=== PATIENT | male | born 1965 | race Caucasian/White ===

== ENCOUNTER 2023-05-14 06:59 | Outpatient (REF) | payer OTHER, SELFPAY ==
[2023-05-14 11:12] LABS: MANUAL DIFF FLAG NO
[2023-05-14 11:34] LABS: Basophils Absolute Auto 0.1 X10*3/uL (0.0-0.2); Basophils Percent Auto 1.2 % (0-2); Eosinophils Absolute Auto 0.4 X10*3/uL (0.0-0.4); Eosinophils Percent Auto 5.3 % (0-4); Hematocrit 46.7 % (42.0-52.0); Hemoglobin 16.9 g/dl (14.0-18.0); Imm Gran Abs Auto 0.05 X10*3/uL (0.00-0.03); Imm Gran Pct Auto 0.7 % (0.0-0.4); Lymphocytes Absolute Auto 3.4 X10*3/uL (1.2-4.9); Lymphocytes Percent Auto 44.1 % (20-40); Mean Corpuscular HGB Conc 36.2 g/dl (31.0-36.0); Mean Corpuscular Hemoglobin 31.9 pg (27.0-33.0); Mean Corpuscular Volume 88.1 fL (80.0-98.0); Mean Platelet Volume 9.4 fL (9.4-12.4); Monocytes Absolute Auto 0.6 X10*3/uL (0.1-1.2); Monocytes Percent Auto 7.8 % (2-11); Neutrophils Absolute Auto 3.2 x10*3/uL (2.0-8.3); Neutrophils Percent Auto 40.9 % (45-73); Platelet Count 275 X10*3/uL (160-400); White Blood Count 7.7 X10*3/uL (4.8-10.8)
[2023-05-14 12:07] LABS: Alanine Aminotransferase 81 U/L (0-40); Albumin Level 4.3 g/dL (3.5-5.0); Alkaline Phosphatase 112 U/L (39-117); Anion Gap 18 (12-20); Aspartate Amino Transferase 45 U/L (5-37); Bilirubin Total 0.8 mg/dL (0.0-1.0); Blood Urea Nitrogen 13 mg/dL (9-16); Calcium 9.9 mg/dL (8.4-10.2); Carbon Dioxide 21 mmol/L (22-29); Chloride 102 mmol/L (96-108); Cholesterol 276 mg/dL (<200); Estimated Glomerular Filt Rate > 60; Glucose Random 170 mg/dL (60-115); HDL Cholesterol 45 mg/dL (>40); Potassium 3.8 mmol/L (3.3-5.1); Sodium 137 mmol/L (135-145); TSH reflex Free T4 1.57 uIU/mL (0.32-4.0); Triglycerides 487 mg/dL (<150)
== END 2023-05-14 07:00 | disposition home or self-care (01) ==
LOC: HO.HMGCLDS 06:59
PROVIDERS: Visit Provider Nurse Practitioner
DX: Z00.00 Encounter for general adult medical examination without abnormal findings (principal)
CPT/HCPCS: 36415; 80053; 80061; 84443; 85025

== ENCOUNTER 2023-05-15 11:30 | Outpatient (REF) | payer OTHER, SELFPAY ==
--- NOTE | ~2023-05-15 | XR_ITS ---
EXAMINATION: XR CHEST 2 VIEWS CLINICAL INFORMATION: Dyspnea. COMPARISON: None. TECHNIQUE: Frontal and lateral views of the chest were obtained. FINDINGS: The heart, great vessels, pulmonary vasculature and mediastinum are normal. The lungs show no focal infiltrate, effusion or pneumothorax. There is moderate elevation of the right hemidiaphragm. There is no acute osseous abnormality. XR/XR chest 2V IMPRESSION: No active cardiopulmonary disease.
== END 2023-05-15 11:31 | disposition home or self-care (01) ==
LOC: HO.HMGCX 11:30
PROVIDERS: Visit Provider Nurse Practitioner
DX: R06.00 Dyspnea, unspecified (principal)
CPT/HCPCS: 71046

== ENCOUNTER 2023-06-03 16:20 | Emergency (ER) | payer OTHER, SELFPAY | END 2023-06-03 19:19 | disposition left against medical advice (07) | LOC: HO.ED 18:49 | PROVIDERS: Emergency Provider Emergency Medicine | DX: R03.0 Elevated blood-pressure reading, without diagnosis of hypertension (principal) ==

== ENCOUNTER 2023-06-15 11:02 | Outpatient (REF) | payer OTHER, SELFPAY ==
[2023-06-15 14:12] LABS: Estimated Average Glucose 163 mg/dL; Hemoglobin A1c % 7.3 % (<6.0)
== END 2023-06-15 11:03 | disposition home or self-care (01) ==
LOC: HO.HMGCLDS 11:02
PROVIDERS: PCP Nurse Practitioner; Visit Provider Nurse Practitioner
DX: R73.09 Other abnormal glucose (principal)
CPT/HCPCS: 36415; 83036

== ENCOUNTER → 2023-07-03 08:38 | Outpatient (REF) | payer OTHER, SELFPAY ==
--- NOTE | 2023-07-03 08:56 | CA_ITS ---
Transthoracic Echocardiogram Patient (Last, First, Middle): Jose De Jesus Torres R Gender: Male Date of : 1965 Age: 57 Procedure Date: 07/03/2023 Procedure Type: Transthoracic Echocardiogram Location: OP Height: 177.8 cm Weight: 92.53 kg BSA: 2.10 m2 Heart Rate: 78 bpm BP: 142 / 92 mmHg Pin Puller: MOR Referring MD: Shereen Benavides NP Drafting Teacher: Rohan Eckert MD Symptoms: HTN I10 Study Quality: Adequate ECG Rhythm: Sinus Conclusions: - 1. Normal LV ejection fraction of 60 65% with grade 1 diastolic dysfunction with mild asymmetric septal hypertrophy 2. Cardiac valvular Doppler is within normal limits 3. Normal RV systolic pressure 4. Upper limits of normal ascending aortic size 5. No gross pericardial effusion Findings Left Ventricle Normal left ventricular size, thickness, and systolic function. The visually estimated ejection fraction is between 60-65%. Spectral Doppler is indicative of an impaired relaxation filling pattern. E/E prime ratio is <8, consistent with normal filling pressures. Evidence suggests grade I (mild) diastolic dysfunction. There is mild septal asymmetric hypertrophy. Right Ventricle Normal right ventricular cavity size. There is low normal right ventricular systolic function. Atria Both atria are normal in size. There is no evidence of interatrial shunt. Aortic Valve The aortic valve structure and function is likely normal. There is no aortic valve stenosis. There is no aortic valve regurgitation. Mitral Valve Likely normal mitral valve structure and function. There is trace mitral valve regurgitation. There is no mitral valve stenosis. Pulmonic Valve The pulmonic valve is likely normal. There is trace to mild pulmonic valve regurgitation. Tricuspid Valve Likely normal tricuspid valve structure and function. There is trace tricuspid valve regurgitation. The right ventricular systolic pressure is normal. The right ventricular systolic pressure is 24 mmHg. Normal right atrial pressure. There is no evidence of pulmonary hypertension. Great Vessels The pulmonary artery was not well visualized. Venous The inferior vena cava is normal in size. Pericardium/Pleural There is no evidence of pericardial effusion. Prior Study Comparison No prior study available for comparison. Measurements 2D Linear Measurements IVSd: 1.38 0.6-0.9/0.6-1.0 cm LVIDd: 4.55 3.9-5.3/4.2-5.9 cm LVIDd Index: 2.17 2.4-3.2/2.2-3.1 cm/m2 LVIDs: 3.12 2.0-3.6 cm LVPWd: 0.82 0.7-1.1 cm LA Diam: 3.00 2.7-3.8/3.0-4.0 cm LAIDs Index: 1.43 1.5-2.3 cm/m2 LV Mass: 222.03 67-162/88-224 g LV Mass Index: 105.73 43-95/49-115 g/m2 LVOT Diam: 2.00 3.0+(-)1.3 cm 2D Systolic Function EF 4C: 65.60 >55% EF 2C: 62.40 >55% EF BiP: 64.50 >55% Mitral Valve MV Pk E: 0.78 MV PK A: 0.64 MV Decel Time: 170.00 E/A: 1.20 E'Lateral: 11.30 E'Medial: 5.77 E/E' Med: 13.50 E/E' Lat: 6.90 PHT: 50.00 MVA PHT: 4.40 Decel Wallace: 4.59 Aortic Valve AoV Pk Be: 1.32 AoV Pk Grad: 7.00 YASMIN: 2.93 LVOT LVOT Pk Be: 1.23 LVOT Mn Be: 0.89 LVOT VTI: 0.25 LVOT Pk Grad: 6.00 LVOT Mn Grad: 4.00 LVOT Diam: 2.00 LVOT Area: 3.14 Diastolic Function MV Pk E: 0.78 MV Pk A: 0.64 E/A: 1.20 E'Medial: 5.77 E/E' Med: 13.50 E' Laterial: 11.30 E/E' Lat: 6.90 Right Ventricle TAPSE (mm): 16.60 TVS' Be: 10.40 Tricuspid Valve TR Pk Be: 2.28 TR Pk Grad: 21.00 RA Press: 3.00 RVSP: 24.00 Great Vessels Aorta Sinus of Valsalva: 3.60 2.0-3.5 cm Ao Asc: 3.60 2.1-3.4 cm Pulmonary Valve PV Pk Be: 0.88 Peak PV Grad: 3.00 Updated in Other Vendor System with Status of Final Rohan Eckert MD electronically signed on 07/03/2023 2:22:52 PM with status of Final
== END ==
LOC: HO.CARD 08:38
PROVIDERS: Visit Provider Nurse Practitioner
DX: I10 Essential (primary) hypertension (principal)
CPT/HCPCS: 93306

== ENCOUNTER → 2023-07-03 08:56 | Outpatient (BNV) | payer OTHER, SELFPAY | PROVIDERS: Visit Provider Internal Medicine Cardiovascular Disease | DX: I42.2 Other hypertrophic cardiomyopathy (principal) | CPT/HCPCS: 93306 ==

== ENCOUNTER 2023-09-18 10:02 | Outpatient (REF) | payer OTHER, SELFPAY ==
[2023-09-18 11:51] LABS: Vitamin B12 453 pg/mL (200-900)
[2023-09-23 15:08] LABS: Testosterone, Total 505 ng/dL (250-1100)
== END 2023-09-18 10:03 | disposition home or self-care (01) ==
LOC: HO.LAB 10:02
PROVIDERS: PCP Nurse Practitioner; Visit Provider Nurse Practitioner
DX: R53.83 Other fatigue (principal)
CPT/HCPCS: 36415; 82607; 84403

== ENCOUNTER 2024-01-20 07:13 | Outpatient (REF) | payer OTHER, SELFPAY ==
[2024-01-20 08:06] LABS: Estimated Average Glucose 97 mg/dL; Hemoglobin A1C 112.8041 umol/L; Total Hemoglobin (HGBA1C) 3570.7812 umol/L
== END 2024-01-20 07:14 | disposition home or self-care (01) ==
LOC: HO.LAB 07:13
PROVIDERS: PCP Nurse Practitioner; Visit Provider Nurse Practitioner
DX: E11.9 Type 2 diabetes mellitus without complications (principal)
CPT/HCPCS: 36415; 83036

== ENCOUNTER 2024-05-26 06:43 | Outpatient (REF) | payer OTHER, SELFPAY ==
--- OUTSIDE RECORDS SUMMARY | 2024-05-26 06:50 | XMS_ITS | Encounter Summary ---
Author Organization [facility] Address [address] [place] [address] Care Team Providers Care Hotel Clerk Name Role Phone Clarissa Leggett MD Primary Care Provider + Encounter Details Date Type Department Care Team (Late st Contact Info) Description 05/19/2024 Telephone [facility] 2 [facility] [address] [place] [address] Clarissa Leggett MD [address] [phone] Social History Tobacco Use Types Packs/Day Years Used Date Smoking Tobacco: Some Days Cigarettes 0.3 42.1 Started: 04/08/1982 Smokeless Tobacco: Never Comments:1 pack per week Alcohol Use Standard Drinks/Week Comments Yes 0 (1 standard drink = 0.6 oz pur e alcohol) Minimal drinking [facility] Utilities Answer Date Recorded In the past 12 months has [email or web address], gas, oil, or water [employer] threatened to shut off services in your home? No 05/18/2024 PHQ-2 Answer Date Recorded PHQ-9 Total Score 1 05/18/2024 Hunger Vital Sign Answer Date Recorded Within the past 12 months, y ou worried that your food would run out before you got the money to buy more. Never true 05/18/19 25 Within the past 12 months, t he food you bought just didn't last and you didn't have money to get more. Never true 05/18/2024 PRAPARE - Transportation Answer Date Re corded In the past 12 months, has l ack of transportation kept you from medical appointments or from getting medications? No 05/09 In the past 12 months, has l ack of transportation kept you from meetings, work, or from getting things needed for daily living? No 05/18/2024 Housing Stability Vital Sign Answer Vlad e Recorded In the last 12 months, was t here a time when you were not able to pay the mortgage or rent on time? No 05/18/2024 In the past 12 months, how m any times have you moved where you were living? 1 05/18/2024 At any time in the past 12 m [facility], were you homeless or living in a alf (including now)? No 05/18/2024 Food Insecurity Answer Date Recorded Within the past 12 months, y ou worried that your food would run out before you got the money to buy more. 1 05/18/2024 Within the past 12 months, t he food you bought just didn't last and you didn't have money to get more. 1 05/18/2024 Sex and Gender Information Value Date Recorded Sex Assigned at Not on file Gender Identity Not on file Sexual Orientation Not on file documented as of this encounter Plan of Treatment Upcoming Encounters Date Type Department Care Team (Latest Contact Info) Description 06/26/2024 12:00 PM EDT Hospital Encounter [facility] ENDOSCOPY DEPARTMENT [address] [place] [phone] Gabino Ramirez MD [address] [place] [address] 06/26/2024 12:00 PM EDT - 06/26/2024 12:50 PM EDT Surgery [facility] END[facility]COPY DEPARTMENT [address] [place] [phone] Gabino Ramirez MD [address] [place] [address] COLORECTAL CANCER SCREENING, NOT HIGH RISK 05/25/2025 8:00 AM [facility] 2 [facility] [address] [place] [address] Clarissa Leggett MD 2 [facility] [address] [place] [address] Return in about 1 year (around 05/19/2025). Scheduled Procedures Name Priority Associated Diagnoses Date/Ti me COLORECTAL CANCER SCREENING, NOT HIGH RISK Screen for colon cancer 06/26/2024 12:00 PM EDT documented as of this encounter Visit Diagnoses Not on filedocumented in this encounter Care Teams Hotel Clerk Relationship Specialty Start Date End Date Clarissa Leggett MD 2 [facility] [address] [place] [address] PCP - General Family Medicine 05/19/24 documented as of this encounter
--- OUTSIDE RECORDS SUMMARY | 2024-05-26 06:50 | XMS_ITS | Continuity of Care Document ---
Author Organization [facility] Address [address] [place] [address] Phone Care Team Providers Care Post Adoption Coordinator Name Role Phone Carlos Mahan MD Unavailable Unavailable Allergies, Adverse Reactions, Alerts Substance Reaction Status Criticality No Known Allergies Active No Inform ation Medications Medication Instructions Dosage Effective Dates (start - stop) Status Comments Celebrex 200 mg capsule take 1 capsule by oral route every day 200 MG - Active VITAMIN C (unknown strength) take 2 capsule by oral route every day Not Available - Active VITAMIN D3 (unknown strength) Not Available - Active ZINC (unknown strength) Not Available - Active CO Q-10 (unknown strength) Not Available - Active МАРИНА-MAG (unknown strength) Not Available - Active MULTIVITAMIN (unknown strength) Not Available - Active PROBIOTIC (unknown strength) Not Available - Active TURMERIC (unknown strength) Not Available - Active APPLE CIDER VINEGAR (unknown strength) Not Available - Active Procedures Procedure Date ECHO GUIDE FOR BIOPSY Dexamethasone Na Phospate Triamcinolone Acetonide/1cc=40mg 2021 Lidocaine injection Ropivacaine HCl injection Inj; 1/mx Trig Point 1/two Mus Offic/outpt E&m Estab Low-mod 2 Hip, Including Pelvis When Performed 2-3 Views Offic/outpt E&m New Mod Sever 2 Advance Directives Directive Yes / No Effective Date File Name No Information Encounters Encounter Description Practice Location Reason(s) For Visit Diagnoses Date Provider Providers Copied on Encounter Offic/outpt E&m Estab Low-mod [facility], [address], [place], [id number], [place] tel:[phone] [facility] left hip pain (chief complaint) Piriformis syndrome, left 2 Negrito Gonzalez. [address] [place] [address], [address], [place]. tel:[phone] Offic/outpt E&m New Mod Sever [facility], [address], [place], [id number], [place] tel:[phone] [facility] left hip pain (chief complaint) Body mass index (BMI) 28.0-28.9, adultPain in left hipPiriformis syndrome, left 2 Laurenamfee angelia Mack. [address] [place] [address], [address], [place]. tel:[phone] Family History Family Member Type Diagnosis Age At Onset No Information Payers Payer name Insurance type Covered green party ID Dinesh normannorman(s) Heike [id number] Social History Type Description Quantity Date Captured Comments Alcohol Use Details Unknown Caffeine Use Details Unknown Tobacco Use Status No Information Smoking Status No Information Sex Male Chief Complaint And Reason For Visit From encounter dated '06/14/2021 09:45'. left hip pain (chief complaint). Description: Location of pain is left. Additional information: U/Sguided Piriformis injection. Reason For Referral Reason For Referral No Information Plan Of Treatment Date Type Action Status Goal Lifestyle educat ion regarding diet completed Referral Ordered: Hip Injection Under Fluro LT hip ordered Referral Ordered: Hip, Including Pelvis When Performed 2-3 Views LT w/pelvis ordered Future Order: Radiology Order Hi p, Including Pelvis When Performed 2-3 Views LT w/pelvis ([id number]), Body Site: w/pelvis, Collected on: , Sent on: Sent History Of Present Illness Encounter Date Complaint History Of Prese nt Illness left hip pain Location of pain is left. Additional information: U/S guided Piriformis injection. left hip pain Severity level i s 6-10. Location of pain is left. The patient describes the pain as an ache. Trauma occurred on 05/23/2021. Symptom is aggravated by standing and night pain. Relieving factors include [id number] medications: ibuprofen. Additional information: States he fell on ice about 5 weeks ago and was more concerned about a wrist injury and thought he just bruised left hip. Locates pain over left buttocks. Occasionally feels like something's catching in his left hip. Functional Status Date Functional Assessmen t No Information Instructions Date Instruction Additional Infor juan f Lifestyle education regarding di et Related to Body mass index [BMI] 28.0-28.9, adult Assessments Type Assessment Date assessment Piriformis syndrome, left Patient Care Teams Name Effective Dates (start - stop) Status Members No Information
--- OUTSIDE RECORDS SUMMARY | 2024-05-26 06:50 | XMS_ITS | Encounter Summary ---
Author Organization [facility] Address [address] [place] [address] Care Team Providers Care Ccna Name Role Phone Clarissa Leggett MD Primary Care Provider + Reason for Visit * Reason Onset Date Comments Records release 05/19/2024 Encounter Details Date Type Department Care Team (Late st Contact Info) Description 05/19/2024 Telephone [facility] [address] [phone] Clarissa Leggett MD [address] [address] Records release Social History Tobacco Use Types Packs/Day Years Used Date Smoking Tobacco: Some Days Cigarettes 0.3 42.1 Started: 04/08/1982 Smokeless Tobacco: Never Comments:1 pack per week Alcohol Use Standard Drinks/Week Comments Yes 0 (1 standard drink = 0.6 oz pur e alcohol) Minimal drinking [facility] Utilities Answer Date Recorded In the past 12 months has [employer], gas, oil, or water [employer] threatened to shut off services in your [...] any time in the past 12 m onths, were you homeless or living in a fci (including now)? No 05/18/2024 Food Insecurity Answer [...] Description 06/26/2024 12:00 PM EDT Hospital Encounter [facility] ENDOSCOPY DEPARTMENT [address] [place] [phone] Gabino Ramirez MD [address] [place] [address] 06/26/2024 12:00 PM EDT - 06/26/2024 12:50 PM EDT Surgery [facility] ENDOSCOPY DEPARTMENT [address] [place] [phone] Gabino Ramirez MD [address] [place] [phone] COLORECTAL CANCER SCREENING, NOT HIGH RISK 05/25/2025 8:00 AM [facility] 2 [facility] 21 [place] [address] Clarissa Leggett MD 2 [facility] [address] [place] [address] Return in about 1 year (around 05/19/2025). Scheduled Procedures Name Priority Associated Diagnoses Date/Ti me COLORECTAL CANCER SCREENING, NOT HIGH RISK Screen for colon cancer 06/26/2024 12:00 PM EDT documented as of this encounter Visit Diagnoses Not on filedocumented in this encounter Care Teams Ccna Relationship Specialty Start Date End Date Clarissa Leggett MD [address] [address] PCP - General Family Medicine 05/19/24 documented as of this encounter
--- OUTSIDE RECORDS SUMMARY | 2024-05-26 06:50 | XMS_ITS | Clinical Summary ---
Author Organization [facility] Address [address] [place] [address] Care Team Providers Care Archivist Political History Name Role Phone Clarissa Leggett MD Primary Care Provider + Allergies Active Allergy Reactions Criticality Noted Date Comments Codeine Hives,Itching,Shortness Of Breath High Medications Medication Sig Dispensed Refills Start Date End Date Status amLODIPine (NORVASC) 5 MG tablet 04/02/2024 Active Continuous Glucose Sensor (DEXCOM G7 SENSOR) MISC 05/10/2024 Active ondansetron (ZOFRAN-ODT) 4 MG disintegrating tablet 05/04/2024 Active MOUNJARO 5 MG/0.5ML SOAJ 04/14/2024 Active MOUNJARO 7.5 MG/0.5ML SOAJ 04/29/2024 Active fenofibrate (TRICOR) 145 MG tablet Take 1 tablet by mouth daily Active Active Problems Problem Noted Date Diagnosed Date Type 2 diabetes mellitus wit hout complication, without long-term current use of insulin 05/19/2024 Assessment & Plan (05/19/2024 8:33 AM EST): Patient reports prior history of type 2 diabetes mellitus. He has been taking Mounjaro 7.5 mg weekly. - will request prior records from his physician's office in order to confirm he has a prior Hg A1C > 6.5 % - will refill Mounjaro 7.5 mg weekly pending prior records from office Primary hypertension 05/19/2024 Assessment & Plan (05/19/2024 8:34 AM EST): Currently well controlled in 120-130s/60s-70s - continue amlodipine 5 mg daily Mixed hyperlipidemia 05/19/2024 Assessment & Plan (05/19/2024 8:33 AM EST): - repeat lipid panel - continue fenofibrate 145 mg daily Screening for colon cancer 05/19/2024 Assessment & Plan (05/19/2024 8:34 AM EST): Screening colonoscopy ordered today Healthcare maintenance 05/19/2024 Assessment & Plan (05/19/2024 8:57 AM EST): Labs: CBC, CMP, Hg A1C, lipid panel, HIV, hepatitis C ordered today Colon cancer screening: screening colonoscopy ordered today Prostate cancer screening: PSA ordered today Immunizations: patient declines any additional immunizations on exam today Screening for prostate cancer 05/19/2024 Assessment & Plan (05/19/2024 8:34 AM EST): Screening PSA ordered today Encounters Date Type Department Care Team Description 05/21/2024 Telephone [facility] 2 [facility] [address] [place] [address] Clarissa Leggett MD 05/20/2024 Telephone [facility] [address] [facility] [address] [address] [place] [phone] Chang Beltrán DPM New Patient 05/19/2024 8:00 AM EST Telemedicine [facility] 2 [facility] [address] [place] [address] Clarissa Leggett MD Type 2 diabetes mellitus without complication, without long-term current use of insulin (HCC) (Primary Dx); Primary hypertension; Mixed hyperlipidemia; Screening for colon cancer; Healthcare maintenance; Screening for prostate cancer 05/19/2024 Orders Only [facility] 2 [facility] [address] [place] [address] Clarissa Leggett MD Type 2 diabetes mellitus without complication, without long-term current use of insulin (HCC) (Primary Dx) 05/19/2024 Telephone [facility] 2 [facility] [address] [place] [phone] Clarissa Leggett MD Records release 05/19/2024 Telephone [facility] [address] [place] [phone] Clarissa Leggett MD 05/04/2024 Telephone [facility] [address] [facility] [address] [place] [address] Clarissa Leggett MD New Patient from Last 3 Months Family History Medical History Relation Name Comments Alcohol Abuse Maternal Grandfather Bossman Allergy (Severe) Mother Melita Torres Asthma Mother Melita Torres Mental Illness Mother Melita Torres Allergy (Severe) Sister Maya 1/2 sister Asthma Sister Maya Relation Name Status Comments Maternal Grandfather Bossman Mother Melita Torres Sister Maya Social History Tobacco Use Types Packs/Day Years Used Date Smoking Tobacco: Some Days Cigarettes 0.3 42.1 Started: 04/08/1982 Smokeless Tobacco: Never Tobacco Cessation:Ready to Q uit: No; Counseling Given: Yes Comments:1 pack per week Alcohol Use Standard Drinks/Week Comments Yes 0 (1 standard drink = 0.6 oz pur e alcohol) Minimal drinking [facility] Utilities Answer Date Recorded In the past 12 months has th e [employer], gas, oil, or water [employer] threatened to shut off services in your [...] any time in the past 12 m [facility], were you homeless or living in a long-term (including now)? No 05/18/2024 Food Insecurity Answer [...] on file Sexual Orientation Not on file Plan of Treatment Upcoming Encounters Date Type Department Care Team (Latest Contact Info) Description 06/26/2024 12:00 PM EDT Hospital Encounter [facility] ENDOSCOPY [facility]PARTMENT [address] [place] [phone] Gabino Ramirez MD [address] [place] [address] 06/26/2024 12:00 PM EDT - 06/26/2024 12:50 PM EDT Surgery [facility] END[facility] DEPART[facility] [address] [place] [phone] Gabino Ramirez MD [address] [place] [phone] COLORECTAL CANCER SCREENING, NOT HIGH RISK 05/25/2025 8:00 AM EST [facility] [address] [phone] Clarissa Leggett MD [address] [address] Return in about 1 year (around 05/19/2025). Scheduled Procedures Name Priority Associated Diagnoses Date/Ti me COLORECTAL CANCER SCREENING, NOT HIGH RISK Screen for colon cancer 06/26/2024 12:00 PM EDT Health Maintenance Due Date Last Done Comments A1C test (Diabetic or Prediabetic) 1976 Diabetic foot exam 1976 Lipids 1976 HIV screen 1981 Diabetic Alb to Cr ratio (uACR) test 1984 Diabetic retinal exam 1984 GFR test (Diabetes, CKD 3-4, OR last GFR 15-59) 1984 Hepatitis C screen 1984 DTaP/Tdap/Td vaccine (1 - Tdap) 1985 Hepatitis B vaccine (1 of 3 - 19+ 3-dose series) 1985 Pneumococcal 50+ years Vacci ne (1 of 2 - PCV) 1985 Colonoscopy 11/04/2011 Colorectal Cancer Screen 11/04/2011 FIT/FOBT: Average risk 11/04/2011 Fecal-DNA (Cologuard): Pearblossom ge risk 11/04/2011 Sigmoidoscopy/CT colonography 11/04/2011 Shingles vaccine (1 of 2) 2016 Flu vaccine (#1) 11/07/2023 COVID-19 Vaccine (1 - 2023-2 5 season) 2023 Depression Screen 05/18/2025 05/18/2024, 05/18/2024 Hepatitis A vaccine Aged Out No longe r eligible based on patient's age to complete this topic Hib vaccine Aged Out No longer eligi ble based on patient's age to complete this topic Meningococcal (ACWY) vaccine Aged Out No longer eligible based on patient's age to complete this topic Polio vaccine Aged Out No longer elig ible based on patient's age to complete this topic Care Teams Archivist Political History Relationship Specialty Start Date End Date Clarissa Leggett MD 2 [facility] [address] [place], [place] [phone] PCP - General Family Medicine 05/19/24
--- OUTSIDE RECORDS SUMMARY | 2024-05-26 06:50 | XMS_ITS | Encounter Summary ---
Author Organization [facility] Address [address] [place] [address] Care Team Providers Care Restaurant Area Director Name Role Phone Clarissa Leggett MD Primary Care Provider + Reason for Visit * Reason Onset Date Comments New Patient 05/20/2024 Encounter Details Date Type Department Care Team (Late st Contact Info) Description 05/20/2024 Telephone [facility] [address] [place] [phone] Chang Beltrán DPM [address] [place] [address] New Patient Social History Tobacco Use Types Packs/Day Years Used Date Smoking Tobacco: Some Days Cigarettes 0.3 42.1 Started: 04/08/1982 Smokeless Tobacco: Never Comments:1 pack per week Alcohol Use Standard Drinks/Week Comments Yes 0 (1 standard drink = 0.6 oz pur e alcohol) Minimal drinking [facility] Utilities Answer Date Recorded In the past 12 months has e [employer], gas, oil, or water [employer] threatened to shut off services in your [...] were you homeless or living in a care home (including now)? No 05/18/2024 Food Insecurity Answer [...] 06/26/2024 12:00 PM EDT Hospital Encounter [facility] ENDOSCOPY DEPARTMENT [address] [place] [phone] Gabino Ramirez MD [address] [place] [address] 06/26/2024 12:00 PM EDT - 06/26/2024 12:50 PM EDT Surgery [facility] ENDOSCOPY DEPARTMENT [address] [place] [phone] Gabino Ramirez MD [address] [place] [address] COLORECTAL CANCER SCREENING, NOT HIGH RISK 05/25/2025 8:00 AM [facility] 2 [facility] [address] [place] [address] Clarissa Leggett MD 2 [facility] 21 [place] [address] Return in about 1 year (around 05/19/2025). Scheduled Procedures Name Priority Associated Diagnoses Date/Ti me COLORECTAL CANCER SCREENING, NOT HIGH RISK Screen for colon cancer 06/26/2024 12:00 PM EDT documented as of this encounter Visit Diagnoses Not on filedocumented in this encounter Care Teams Restaurant Area Director Relationship Specialty Start Date End Date Clarissa Leggett MD [address] [address] PCP - General Family Medicine 05/19/24 documented as of this encounter
--- OUTSIDE RECORDS SUMMARY | 2024-05-26 06:50 | XMS_ITS | Encounter Summary ---
Author Organization [facility] Address [address] [place] [address] Care Team Providers Care Director Of Product Design Name Role Phone Clarissa Leggett MD Primary Care Provider + Encounter Details Date Type Department Care Team (Late st Contact Info) Description 05/21/2024 Telephone [facility] 2 [facility] [address] [place] [phone] Clarissa Leggett MD [address] [address] Social History Tobacco Use Types Packs/Day Years Used Date Smoking Tobacco: Some Days Cigarettes 0.3 42.1 Started: 04/08/1982 Smokeless Tobacco: Never Comments:1 pack per week Alcohol Use Standard Drinks/Week Comments Yes 0 (1 standard drink = 0.6 oz pur e alcohol) Minimal drinking [facility] Utilities Answer Date Recorded In the past 12 months has [employer], gas, oil, or water [employer] threatened to shut off services in your [...] any time in the past 12 m [facility], were you homeless or living in a mcc (including now)? No 05/18/2024 Food Insecurity Answer [...] Description 06/26/2024 12:00 PM EDT Hospital Encounter [facility] ENDOSCOPY DEPARTMENT [address] [place] [phone] Gabino Ramirez MD [address] [place] [phone] 06/26/2024 12:00 PM EDT - 06/26/2024 12:50 PM EDT Surgery [facility] ENDOSCOPY DEPARTMENT [address] [place] [phone] Gabino Ramirez MD [address] [place] [phone] COLORECTAL CANCER SCREENING, NOT HIGH RISK 05/25/2025 8:00 AM [facility] 2 [facility] [address] [place] [phone] Clarissa Leggett MD [address] [facility] [address] [place] [address] Return in about 1 year (around 05/19/2025). Scheduled Procedures Name Priority Associated Diagnoses Date/Ti me COLORECTAL CANCER SCREENING, NOT HIGH RISK Screen for colon cancer 06/26/2024 12:00 PM EDT documented as of this encounter Visit Diagnoses Not on filedocumented in this encounter Care Teams Director Of Product Design Relationship Specialty Start Date End Date Clarissa Leggett MD [address] [facility] [address] [place] [address] PCP - General Family Medicine 05/19/24 documented as of this encounter
--- OUTSIDE RECORDS SUMMARY | 2024-05-26 06:50 | XMS_ITS | Continuity of Care Document ---
Author Organization [facility] Address [address] [facility] [address] [place] [address] Phone Care Team Providers Care Carpet Or Rug Layer Helper Name Role Phone Severino Arrieta MD Unavailable Unavailable Advance Directives Directive Yes / No Effective Date File Name No Information Encounters Encounter Description Practice Location Reason(s) For Visit Diagnoses Date Provider Providers Copied on Encounter [facility], [address] [facility] [address], [place], [place], [id number], [place] tel:[phone] [facility] [place] No Information Meenakshi Haq. [address] [facility] [address], [address], [place]. tel: [phone] Family History Family Member Type Diagnosis Age At Onset No Information Payers Payer name Insurance type Covered alliance party ID Authoriza tion(s) No Information Social History Type Description Quantity Date Captured Comments Sex Male Smoking Status No Information Chief Complaint And Reason For Visit No Information Reason For Referral Reason For Referral No Information History Of Present Illness Encounter Date Complaint History Of Prese nt Illness No Information Functional Status Date Functional Assessmen t No Information Instructions Date Instruction Additional Infor mation No Information Assessments Type Assessment Date No Information Patient Care Teams Name Effective Dates (start - stop) Status Members No Information
--- OUTSIDE RECORDS SUMMARY | 2024-05-26 06:50 | XMS_ITS | Encounter Summary ---
Author Organization [facility] Address [address] [place] [address] Care Team Providers Care Amf Mechanic Name Role Phone Clarissa Leggett MD Primary Care Provider + Reason for Referral * Auth/Cert (Routine) - Incomplete Specialty Diagnoses / Procedures Referred By Contact Referred To Contact Gastroenterology / General Surgery Diagnoses Screening for colon cancer Clarissa Leggett MD [address] [place] [phone] [facility] Endoscopy [address] [place] [phone] Referral ID Status Reason Start Date Expiration Date Visits Requested Visits Authorized [id number] Incomplete Specialty Services Required 05/19/2024 05/19/2025 1 1 Scheduling Instructions [facility] Endoscopy Services [phone] Question Answer Endoscopy Service Screening Colonoscopy My clinical question is: 58 yo male please perform routine colonoscopy for colon cancer screening Comments The patient can be scheduled with any member of the group, including the provider with the first available appointments. Reason for Visit * Reason Comments Establish Care Encounter Details Date Type Department Care Team (Late st Contact Info) Description 05/19/2024 8:00 AM EST Telemedicine [facility] [address] [phone] Clarissa Leggett MD 2 [facility] [address] [place] [address] Type 2 diabetes mellitus without complication, without long-term current use of insulin (HCC) (Primary Dx); Primary hypertension; Mixed hyperlipidemia; Screening for colon cancer; Healthcare maintenance; Screening for prostate cancer Social History Tobacco Use Types Packs/Day Years Used Date Smoking Tobacco: Some Days Cigarettes 0.3 42.1 Started: 04/08/1982 Smokeless Tobacco: Never Tobacco Cessation:Ready to Q uit: No; Counseling Given: Yes Comments:1 pack per week Alcohol Use Standard Drinks/Week Comments Yes 0 (1 standard drink = 0.6 oz pur e alcohol) Minimal drinking [facility] Utilities Answer Date Recorded In the past 12 months has th e [employer], gas, oil, or water [employer] threatened to shut off services in your [...] any time in the past 12 m [facility], were you homeless or living in a usp (including now)? No 05/18/2024 Food Insecurity Answer [...] on file documented as of this encounter Progress Notes * Clarissa Leggett MD - 05/19/2024 8:03 AM EST Images from the original note were not included. CHIEF COMPLAINT Jose De Jesus Torres is a 58 y.o. male who presents to the office today to establish care. VIRTUAL TELEHEALTH VISIT (Performed via Telephone or Audio & Video) VISIT TYPE: Video and Audio (secure two-way interactive video connection) PROVIDER LOCATION: Home PATIENT LOCATION AT TIME OF VISIT: HOME: [address] [place] [address] PARTICIPANT(S): Patient BILLING CODE: Standard E/M Billing Codes: Billing for this visit is time based - 85077 - New - 45-59 minutes Total time spent including chart review and non-face to face time TOTAL TIME SPENT ON ENCOUNTER: 45 minutes Review of electronic health record: I specifically reviewed: Labs and Previous Office Encounters Problems, Meds and Allergies were reviewed. Patient gave verbal consent for this TeleHealth visit. HISTORY OF PRESENT ILLNESS Patient presents to establish care today. He states his home blood pressures at home at 120s-130s/60s-70s on amlodipine 5 mg daily. His last Hg A1C he states was about 3 months and was 5.0%. Patient states he travels extensively through [place] for work. He states he needs a refill of Mounjaro which he has been taking for type 2 diabetes. Patient has been taking 7.5 mg Mounjaro weekly. Patient has not had a prior colon cancer screening. He would be interested in a colonoscopy. He has not had a prostate cancer screening before. He declines any additional immunizations on exam today. No other concerns today. MEDICATIONS Current Outpatient Medications Medication Sig amLODIPine (NORVASC) 5 MG tablet Continuous Glucose Sensor (DEXCOM G7 SENSOR) MISC ondansetron (ZOFRAN-ODT) 4 MG disintegrating tablet MOUNJARO 5 MG/0.5ML SOAJ MOUNJARO 7.5 MG/0.5ML SOAJ fenofibrate (TRICOR) 145 MG tablet Take 1 tablet by mouth daily No current facility-administered medications for this visit. There are no discontinued medications. ALLERGIES Allergies Allergen Reactions Codeine Hives, Itching and Shortness Of Breath ACTIVE MEDICAL PROBLEMS Patient Active Problem List Diagnosis Type 2 diabetes mellitus without complication, without long-term current use of insulin (HCC) Primary hypertension Mixed hyperlipidemia Screening for colon cancer Healthcare maintenance Screening for prostate cancer PAST SURGICAL HISTORY No past surgical history on file. SOCIAL HISTORY Social History Social History Narrative Not on file FAMILY HISTORY No family history on file. VITALS There were no vitals filed for this visit. - There is no height or weight on file to calculate BMI. PHYSICAL EXAM Visualized patient from neck upwards Well-nourished, well-developed No acute distress Responds to questions appropriately SCREENING QUESTIONNAIRES STOP-BANG (3+ high risk) No data to display DEPRESSION SCREENING Severity: 1-4 low risk; 5-9 mild depressive symptoms; 10-14 mild major depression; 15-19 moderate major depression; 20-27 severe major depression 05/18/2024 6:57 AM PHQ-9 Little interest or pleasure in doing things 0 Feeling down, depressed, or hopeless 0 Trouble falling or staying asleep, or sleeping too much 1 Feeling tired or having little energy 0 Poor appetite or overeating 0 Feeling bad about yourself - or that you are a failure or have let yourself or your family down 0 Trouble concentrating on things, such as reading the newspaper or watching television 0 Moving or speaking so slowly that other people could have noticed. Or the opposite - being so fidgety or restless that you have been moving around a lot more than usual 0 Thoughts that you would be better off , or of hurting yourself in some way 0 PHQ-2 Score 0 PHQ-9 Total Score 1 If you checked off any problems, how difficult have these problems made it for you to do your work,take care of things at home, or get along with other people? 0 CAGE-AID (if needed) No data to display PREVENTIVE CARE IMMUNIZATIONS There is no immunization history on file for this patient. Health Maintenance Due Topic Date Due HIV screen Never done Hepatitis C screen Never done Hepatitis B vaccine (1 of 3 - 19+ 3-dose series) Never done DTaP/Tdap/Td vaccine (1 - Tdap) Never done Lipids Never done Colorectal Cancer Screen Never done Shingles vaccine (1 of 2) Never done Pneumococcal 50+ years Vaccine (1 of 1 - PCV) Never done Flu vaccine (1) Never done COVID-19 Vaccine ( season) Never done ASSESSMENT AND PLAN 1. Type 2 diabetes mellitus without complication, without long-term current use of insulin (HCC) Assessment & Plan: Patient reports prior history of type 2 diabetes mellitus. He has been taking Mounjaro 7.5 mg weekly. - will request prior records from his physician's office in order to confirm he has a prior Hg A1C > 6.5 % - will refill Mounjaro 7.5 mg weekly pending prior records from office 2. Primary hypertension Assessment & Plan: Currently well controlled in 120-130s/60s-70s - continue amlodipine 5 mg daily 3. Mixed hyperlipidemia Assessment & Plan: - repeat lipid panel - continue fenofibrate 145 mg daily 4. Screening for colon cancer Assessment & Plan: Screening colonoscopy ordered today Orders: - Referral to [facility] 5. Healthcare maintenance Assessment & Plan: Labs: CBC, CMP, Hg A1C, lipid panel, HIV, hepatitis C ordered today Colon cancer screening: screening colonoscopy ordered today Prostate cancer screening: PSA ordered today Immunizations: patient declines any additional immunizations on exam today Orders: - HIV 1/2 Ag/Ab, 4TH Generation,W Rflx Confirm; Future - Hepatitis C Antibody; Future - CBC with Auto Differential; Future - Comprehensive Metabolic Panel; Future - Lipid Panel W/ Reflex Direct LDL; Future - Hemoglobin A1C; Future 6. Screening for prostate cancer Assessment & Plan: Screening PSA ordered today Orders: - PSA Screening; Future PREVENTIVE CARE EDUCATION & COUNSELING: Healthy diet, maintaining a healthy weight, and getting at least 30 minutes of exercise most every day. Immunizations: Pneumococcal Vaccine: Once for high risk patients - (Smokers, Alcoholics, Chronic Lung, Heart, or Liver Dz), repeat at 65 Influenza Vaccine: Discussed annual vaccination. Shingles Vaccine: (Shingrix for those over 50, 2 shots 2-6 months apart) COVID-19 Vaccine status reviewed and discussed TdaP (every 10 yrs) Colon CA Screening: Colonoscopy (Q10Y), FIT test (Q1Y), or Cologuard (Q3Y) from 45-75 with consideration of ongoing screening from 76-85. Lung CA Screening with Low dose CT: 50-80 y.o., 20 PYH, and currently smoking or quit less than 15 years ago, Annually Tobacco Hx: reports that he has been smoking cigarettes. He started smoking about 42 years ago. He has a 12.6 pack-year smoking history. He has never used smokeless tobacco. Hepatitis C screening: (once for 18-79 y.o., annual for high risk) HIV Screen: (once for 15-65 y.o., annual for high risk) Abdominal aortic aneurysm screening: Indicated for patients over 65 with a FH of AAA or a smoking history. PSA screening: Every 2-4 years for patients age 55-69 after review of pros and cons. Cholesterol screening: (every 5 years after age 45) Diabetes screening in adults ages 40 to 70 who are overweight or obese. Reviewed safe amounts of alcohol use (No more than 2 drinks per day). Follow up: Return in about 1 year (around 05/19/2025). No future appointments. documented in this encounter Plan of Treatment Upcoming Encounters Date Type Department Care Team (Latest Contact Info) Description 06/26/2024 12:00 PM EDT Hospital Encounter [facility] ENDOSCOPY DEPARTMENT [address] [place] [phone] Gabino Ramirez MD [address] [place] [phone] 06/26/2024 12:00 PM EDT - 06/26/2024 12:50 PM EDT Surgery [facility] ENDOSCOPY DEPARTMENT [address] [place] [phone] Gabino Ramirez MD [address] [place] [phone] COLORECTAL CANCER SCREENING, NOT HIGH RISK 05/25/2025 8:00 AM EST Telemedicine [facility] [address] [phone] Clarissa Leggett MD [address] [address] Return in about 1 year (around 05/19/2025). Scheduled Orders Name Type Priority Associated Diagnoses Orde r Schedule PSA Screening Lab Routine Screening for prostate cancer Expected: 05/19/2024, Expires: 05/19/2025 HIV 1/2 Ag/Ab, 4TH Generation,W Rflx Confirm Lab Routine Healthcare maintenance Expected: 05/19/2024, Expires: 05/19/2025 Hepatitis C Antibody Lab Routine Healthcare maintenance Expected: 05/19/2024, Expires: 05/19/2025 CBC with Auto Differential Lab Routine Healthcare maintenance Expected: 05/19/2024, Expires: 05/19/2025 Comprehensive Metabolic Panel Lab Routine Healthcare maintenance Expected: 05/19/2024, Expires: 05/19/2025 Lipid Panel W/ Reflex Direct LDL Lab Routine Healthcare maintenance Expected: 05/19/2024, Expires: 05/19/2025 Hemoglobin A1C Lab Routine Healthcare maintenance Expected: 05/19/2024, Expires: 05/19/2025 Scheduled Procedures Name Priority Associated Diagnoses Date/Ti me COLORECTAL CANCER SCREENING, NOT HIGH RISK Screen for colon cancer 06/26/2024 12:00 PM EDT Scheduled Referrals Name Type Priority Associated Diagnoses Orde r Schedule Referral to [facility] Outpatient Referral Routine Screening for colon cancer Ordered: 05/19/2024 documented as of this encounter Visit Diagnoses Diagnosis Type 2 diabetes mellitus without complication, without long-term current use of insulin (HCC)- Primary Primary hypertension Unspecified essential hypertension Mixed hyperlipidemia Screening for colon cancer Special screening for malignant neoplasms, colon Healthcare maintenance Routine general medical examination at a health care facility Screening for prostate cancer Special screening for malignant neoplasm of prostate Screen for colon cancer Special screening for malignant neoplasms, colon documented in this encounter Care Teams Amf Mechanic Relationship Specialty Start Date End Date Clarissa Leggett MD 2 [facility] [address] [place] [address] PCP - General Family Medicine 05/19/24 documented as of this encounter
--- OUTSIDE RECORDS SUMMARY | 2024-05-26 06:50 | XMS_ITS | Encounter Summary ---
Author Organization [facility] Address [address] [place] [address] Care Team Providers Care Board Turner Name Role Phone Clarissa Leggett MD Primary Care Provider + Reason for Referral * Eval and Treat (Routine) - Authorized Specialty Diagnoses / Procedures Referred By Rajwinder johnson Referred To Contact Podiatry / Orthopedic Surgery Diagnoses Type 2 diabetes mellitus without complication, without long-term current use of insulin ([facility]) Clarissa Leggett MD [address] [place] [address] [address] Beltr[facility] D[facility] [address] [place] [address] Referral ID Status Reason Start Date Expiration Date Visits Requested Visits Authorized [id number] Authorized Specialty Services Required 05/19/2024 05/19/2025 12 12 Scheduling Instructions [facility] [address] , [address] [place] [address] Question Answer My clinical question is: 58 yo male with type 2 diabetes, please perform annual diabetic foot exam Comments The patient can be scheduled with any member of the group, including the provider with the first available appointments. * Eval and Treat (Routine) - Authorized Specialty Diagnoses / Procedures Referred By Rajwinder johnson Referred To Contact Ophthalmology Diagnoses Type 2 diabetes mellitus without complication, without long-term current use of insulin ([facility]) Clarissa Leggett MD [address] [place] [address] [phone] [facility] [address] [place] [address] Referral ID Status Reason Start Date Expiration Date Visits Requested Visits Authorized [id number] Authorized Specialty Services Required 05/19/2024 05/19/2025 [address] [facility] [address] [facility] [address] [place] [address] Question Answer Reason For External Referral? Location My clinical question is: 58 yo male with type 2 diabetes, please perform annual eye exam Ophthalmology Specialty Diabetes eye exam Comments The patient can be scheduled with any member of the group, including the provider with the first available appointments. Encounter Details Date Type Department Care Team (Late st Contact Info) Description 05/19/2024 Orders Only [facility] 2 [facility] 21 [place] [phone] Clarissa Leggett MD 2 [facility] [address] [place] [address] Type 2 diabetes mellitus without complication, without long-term current use of insulin (HCC) (Primary Dx) Social History Tobacco Use Types Packs/Day Years Used Date Smoking Tobacco: Some Days Cigarettes 0.3 42.1 Started: 04/08/1982 Smokeless Tobacco: Never Comments:1 pack per week Alcohol Use Standard Drinks/Week Comments Yes 0 (1 standard drink = 0.6 oz pur e alcohol) Minimal drinking [facility] Utilities Answer Date Recorded In the past 12 months has [employer], gas, oil, or water [employer] threatened to shut off services in your [...] any time in the past 12 m [facility], were you homeless or living in a skilled nursing (including now)? No 05/18/2024 Food Insecurity Answer [...] Description 06/26/2024 12:00 PM EDT Hospital Encounter [facility] ENDOSCOPY DEPARTMENT [address] [place] [phone] Gabino Ramirez MD [address] [place] [phone] 06/26/2024 12:00 PM EDT - 06/26/2024 12:50 PM EDT Surgery [facility] ENDOSCOPY DEPARTMENT [address] [place] [phone] Gabino Ramirez MD [address] [place] [phone] COLORECTAL CANCER SCREENING, NOT HIGH RISK 05/25/2025 8:00 AM EST [address] [phone] Clarissa Leggett MD 2 [facility] [address] [place] [address] Return in about 1 year (around 05/19/2025). Scheduled Orders Name Type Priority Associated Diagnoses Orde r Schedule Albumin/Creatinine Ratio, Urine Lab Routine Type 2 diabetes mellitus without complication, without long-term current use of insulin (HCC) Expected: 05/19/2024, Expires: 05/19/2025 Scheduled Procedures Name Priority Associated Diagnoses Date/Ti me COLORECTAL CANCER SCREENING, NOT HIGH RISK Screen for colon cancer 06/26/2024 12:00 PM EDT Scheduled Referrals Name Type Priority Associated Diagnoses Orde r Schedule Referral to [facility] Outpatient Referral Routine Type 2 diabetes mellitus without complication, without long-term current use of insulin (HCC) Ordered: 05/19/2024 Referral to [facility] Podiatry Outpatient Referral Routine Type 2 diabetes mellitus without complication, without long-term current use of insulin (HCC) Ordered: 05/19/2024 documented as of this encounter Visit Diagnoses Diagnosis Type 2 diabetes mellitus without complication, without long-term current use of insulin (HCC)- Primary Screen for colon cancer Special screening for malignant neoplasms, colon documented in this encounter Care Teams Board Turner Relationship Specialty Start Date End Date Clarissa Leggett MD 2 [facility] [address] [place] [address] PCP - General Family Medicine 05/19/24 documented as of this encounter
[2024-05-26 06:59] LABS: MANUAL DIFF FLAG NO
[2024-05-26 07:48] LABS: Basophils Absolute Auto 0.1 X10*3/uL (0.0-0.2); Basophils Percent Auto 0.9 % (0-2); Eosinophils Absolute Auto 0.4 X10*3/uL (0.0-0.4); Eosinophils Percent Auto 4.7 % (0-4); Hematocrit 45.3 % (42.0-52.0); Hemoglobin 15.9 g/dl (14.0-18.0); Imm Gran Abs Auto 0.05 X10*3/uL (0.00-0.03); Imm Gran Pct Auto 0.6 % (0.0-0.4); Lymphocytes Absolute Auto 3.8 X10*3/uL (1.2-4.9); Lymphocytes Percent Auto 43.9 % (20-40); Mean Corpuscular HGB Conc 35.1 g/dl (31.0-36.0); Mean Corpuscular Hemoglobin 31.2 pg (27.0-33.0); Mean Corpuscular Volume 88.8 fL (80.0-98.0); Monocytes Absolute Auto 0.6 X10*3/uL (0.1-1.2); Monocytes Percent Auto 6.9 % (2-11); Neutrophils Absolute Auto 3.7 x10*3/uL (2.0-8.3); Platelet Count 279 X10*3/uL (160-400); Red Cell Distribution Width 12.3 % (11.0-16.0); White Blood Count 8.7 X10*3/uL (4.8-10.8)
[2024-05-26 08:14] LABS: Estimated Average Glucose 100 mg/dL; Hemoglobin A1C 132.3734 umol/L; Hemoglobin A1c % 5.1 % (<6.0); Total Hemoglobin (HGBA1C) 4099.3998 umol/L
[2024-05-26 08:19] LABS: Alanine Aminotransferase 22 U/L (0-40); Albumin Level 4.6 g/dL (3.5-5.0); Alkaline Phosphatase 53 U/L (39-117); Anion Gap 14 (12-20); Aspartate Amino Transferase 21 U/L (5-37); Bilirubin Total 0.4 mg/dL (0.0-1.0); Blood Urea Nitrogen 16 mg/dL (9-16); Calcium 9.7 mg/dL (8.4-10.2); Carbon Dioxide 21 mmol/L (22-29); Chloride 109 mmol/L (96-108); Cholesterol 182 mg/dL (<200); Estimated Glomerular Filt Rate > 60; Glucose Random 89 mg/dL (60-115); HDL Cholesterol 47 mg/dL (>40); LDL Cholesterol Calculated 118 mg/dL (<100); Potassium 3.9 mmol/L (3.3-5.1); Sodium 140 mmol/L (135-145); Triglycerides 85 mg/dL (<150)
[2024-05-26 08:36] LABS: Prostate Specific Antigen Scr 1.11 ng/mL (<0.05-4.0)
[2024-05-26 08:49] LABS: ~HepC Num1 0.21 S/CO (0.00-0.79); ~Hepatitis C Antibody Nonreactive (Nonreactive)
[2024-05-26 08:57] LABS: Creatinine Urine 310.37 mg/dL
[2024-05-26 11:58] LABS: Reflex LDLD? No
[2024-05-30 09:54] LABS: HIV RNA PCR Qn Copies Not Detected Copies/mL; HIV RNA PCR Qn Log Copies Not Detected Log cps/mL
== END 2024-05-26 06:44 | disposition home or self-care (01) ==
LOC: HO.LAB 06:43
PROVIDERS: Visit Provider Internal Medicine
DX: Z00.00 Encounter for general adult medical examination without abnormal findings (principal); E11.9 Type 2 diabetes mellitus without complications; Z13.0 Encounter for screening for diseases of the blood and blood-forming organs and certain disorders involving the immune mechanism; Z13.220 Encounter for screening for lipoid disorders; Z11.59 Encounter for screening for other viral diseases; Z11.4 Encounter for screening for human immunodeficiency virus [HIV]; Z12.5 Encounter for screening for malignant neoplasm of prostate
CPT/HCPCS: 36415; 80053; 80061; 82043; 82570; 83036; 84153; 85025; 86803; 87536; 87900

== ENCOUNTER 2024-07-01 08:51 | Outpatient (REF) | payer OTHER, SELFPAY ==
--- NOTE | ~2024-07-01 | XR_ITS ---
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 FINDINGS: Three views of the orbits are submitted. Osseous mineralization is normal. There is no radiopaque foreign body. A rounded soft tissue density in the left maxillary sinus is compatible with a polyp versus mucous retention cyst. XR/XR pre mri screening IMPRESSION: No evidence of orbital radiopaque foreign body. Electronically signed by: Bilyl Moreno MD 07/01/2024 11:42 AM EDT
== END 2024-07-01 08:52 | disposition home or self-care (01) ==
LOC: HO.XRAY 08:51
PROVIDERS: Visit Provider Optometrist
DX: Z13.89 Encounter for screening for other disorder (principal)

== ENCOUNTER 2024-07-08 11:06 | Outpatient (REF) | payer OTHER, SELFPAY ==
[2024-07-08 11:45] LABS: Platelet Count 273 X10*3/uL (160-400)
[2024-07-08 12:13] LABS: C Reactive Protein 0.37 mg/dL (< or = 0.50)
[2024-07-08 12:27] LABS: Erythrocyte Sedimentation Rate 10 MM/HR (0-15)
--- OUTSIDE RECORDS SUMMARY | 2024-07-08 13:30 | XMS_ITS | Encounter Summary ---
Author Organization [facility] Address [address] [place] [address] Care Team Providers Care Sausage Tier Name Role Phone Clarissa Leggett MD Primary Care Provider + Reason for Visit * Reason Onset Date Comments Medication Refill 06/15/2024 Encounter Details Date Type Department Care Team (Late st Contact Info) Description 06/15/2024 Refill [facility] ENDOSCOPY DEPARTMENT [address] [place] [phone] Jeremi Hernandez MD [address] [place] [phone] Medication Refill Social History Tobacco Use Types Packs/Day Years Used Date Smoking Tobacco: Some Days Cigarettes 0.3 42.2 Started: 04/08/1982 Smokeless Tobacco: Never Comments:1 pack per week Alcohol Use Standard Drinks/Week Comments Yes 0 (1 standard drink = 0.6 oz pur e alcohol) Minimal drinking [facility] Utilities Answer Date Recorded In the past 12 months has e [employer], gas, oil, or water [employer] threatened to shut off services in your [...] any time in the past 12 m ont, were you homeless or living in a mcfp (including now)? No 05/18/2024 Food Insecurity Answer [...] Information Value Date Recorded Sex Assigned at Male 06/12/2024 3:31 PM EST Legal Sex Male 9:49 AM EST Gender Identity Male 06/12/2024 3:31 PM EST Sexual Orientation Straight 06/12/2024 3: 31 PM EST Travel History Travel Start Travel End [place] 06/22/2024 06/24/2024 documented as of this encounter Plan of Treatment Upcoming Encounters Date Type Department Care Team (Late st Contact Info) Description 07/17/2024 2:30 PM EDT Appointment [facility] [address] [place] [address] screened 06/30/ 05/25/2025 8:00 AM EST Telemedicine [facility] 2 [facility] [address] [place] [phone] Clarissa Leggett MD 2 [facility] [address] [place] [address] Return in about 1 year (around 05/19/2025). documented as of this encounter Visit Diagnoses Not on filedocumented in this encounter Care Teams Sausage Tier Relationship Specialty Start Date End Date Clarissa Leggett MD 2 [facility] [address] [place] [address] PCP - General Family Medicine 05/19/24 documented as of this encounter
--- OUTSIDE RECORDS SUMMARY | 2024-07-08 13:30 | XMS_ITS | Clinical Summary ---
Author Organization [facility] Address [address] [place] [address] Care Team Providers Care Raise Driller Name Role Phone Clarissa Leggett MD Primary Care Provider + Allergies Active Allergy Reactions Criticality Noted Date Comments Codeine Hives,Itching,Shortness Of Breath High Medications amLODIPine (NORVASC) 5 MG tablet 04/02/20 24 Active Continuous Glucose Sensor (DEXCOM G7 SENSOR) MISC 05/10/19 25 Active ondansetron (ZOFRAN-ODT) 4 MG disintegrating tablet 05/04/19 25 Active MOUNJARO 5 MG/0.5ML SOAJ 04/14/19 25 Active MOUNJARO 7.5 MG/0.5ML SOAJ 04/29/19 25 Active fenofibrate (TRICOR) 145 MG tablet Take 1 tablet by mouth daily Active polyethylene glycol (COLYTE) 240 g solution Take 4,000 mLs by mouth See Admin Instructions 4000 mL 1 06/16/19 25 025 Discontin ued(Thera py completed ) Active Problems Problem Noted Date Diagnosed Date [...] panel - continue fenofibrate 145 mg daily Resolved Problems Problem Noted Date Diagnosed Date Resolved Date Screening for colon cancer 05/19/2024 0 06/18/2024 Assessment & Plan (05/19/2024 8:34 AM EST): Screening colonoscopy ordered today Healthcare maintenance 05/19/202406/18 Assessment & Plan (05/19/2024 8:57 AM EST): Labs: CBC, CMP, Hg A1C, lipid panel, HIV, hepatitis C ordered today Colon cancer screening: screening colonoscopy ordered today Prostate cancer screening: PSA ordered today Immunizations: patient declines any additional immunizations on exam today Screening for prostate cancer 05/19/2024 06/18/2024 Assessment & Plan (05/19/2024 8:34 AM EST): Screening PSA ordered today Encounters Date Type Department Care Team Description 06/30/2024 Transcribe Orders [facility] MRI [address] [place] [address] Nichol Jung S, OD 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, bilateral (Primary Dx) 06/29/2024 Transcribe Orders [facility] MRI [address] [place] [address] Cely Harding Other localized visual field defect, right eye (Primary Dx) 06/29/2024 Abstract [facility] 2 [facility] [address] [place] [phone] Clarissa Leggett MD 06/26/2024 8:04 AM EDT Anesthesia Event [facility] ENDOSCOPY DEPARTMENT [address] [place] [address] 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, 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 06/26/2024 8:00 AM EDT - 06/26/2024 8:56 AM EDT Surgery [facility] ENDOSCOPY DEPARTMENT [address] [place] [phone] Jeremi Hernanedz MD COLONOSCOPY POLYPECTOMY COLD SNARE 06/26/2024 6:31 AM EDT - 06/26/2024 9:21 AM EDT Hospital Encounter [facility] ENDOSCOPY DEPARTMENT [address] [place] [phone] Jeremi Hernandez MD Screen for colon cancer Discharge Disposition: Home or Self Care 06/26/2024 Travel 06/15/2024 Refill [facility] ENDOSCOPY DEPARTMENT [address] [place] [phone] Jeremi Hernandez MD Medication Refill 06/09/2024 Abstract [facility] [address] [place] [address] Clarissa Leggett MD 05/27/2024 Abstract [facility] [address] [place] [address] Clarissa Leggett MD 05/27/2024 Telephone [facility] [address] [place] [address] Clarissa Leggett MD 05/26/2024 Telephone [facility] 2 [facility] [address] [place] [address] Clarissa Leggett MD 05/21/2024 Telephone [facility] 2 [facility] [address] [place] [address] Clarissa Leggett MD 05/20/2024 Telephone [facility] [address] [place] [address] Chang Beltrán DPM New Patient 05/19/2024 8:00 AM EST Telemedicine [facility] 2 [facility] [address] [place] [address] Clarissa Leggett MD Type 2 diabetes mellitus without complication, without long-term current use of insulin (HCC) (Primary Dx); Primary hypertension; Mixed hyperlipidemia; Screening for colon cancer; Healthcare maintenance; Screening for prostate cancer 05/19/2024 Orders Only [facility] 2 [facility] [address] [place] [address] Clarissa Leggett MD Type 2 diabetes mellitus without complication, without long-term current use of insulin (HCC) (Primary Dx) 05/19/2024 Telephone [facility] [address] [phone] Clarissa Leggett MD Records release 05/19/2024 Telephone [facility] 2 [facility] [address] [place] [address] Clarissa Leggett MD 05/04/2024 Telephone [facility] 2 [facility] [address] [place] [address] Clarissa Leggett MD New Patient from Last 3 Months Family History Medical History Relation Name Comments Alcohol Abuse Maternal Grandfather Bossman Allergy (Severe) Mother Melita Torres Asthma Mother Melita Torres Mental Illness Mother Melita Torres Allergy (Severe) Sister Maya 1/2 sister Asthma Sister Maya Relation Name Status Comments Maternal Grandfather Bossman Mother Melita Brian Sister Maya Social History Tobacco Use Types Packs/Day Years Used Date Smoking Tobacco: Some Days Cigarettes 0.3 42.2 Started: 04/08/1982 Smokeless Tobacco: Never Tobacco Cessation:Ready to Q uit: No; Counseling Given: Yes Comments:1 pack per week Alcohol Use Standard Drinks/Week Comments Yes 0 (1 standard drink = 0.6 oz pur e alcohol) Minimal drinking [facility] Utilities Answer Date Recorded In the past 12 months has e [employer] gas, oil, or water [employer] threatened to shut off services in your [...] any time in the past 12 m [facility], were you homeless or living in a residential (including now)? No 05/18/2024 Food Insecurity Answer [...] Travel History Travel Start Travel End [place] 06/22/2024 06/24/2024 Last Filed Vital Signs Vital Sign Reading Time Taken Comments Blood Pressure 120/82 06/26/2024 9:07 AM EDT Pulse 76 06/26/2024 9:07 AM EDT Temperature 36.7 ??C (98 ??F) 06/26/2024 8:52 AM EDT Respiratory Rate 16 06/26/2024 9:07 AM EDT Oxygen Saturation 97% 06/26/2024 9:07 AM EDT Inhaled Oxygen Concentration - - Weight 79.4 kg (175 lb) 06/30/2024 7:51 AM EDT Height 177.8 cm (5' 10 ) 06/30/2024 7:51 AM EDT Body Mass Index 25.11 06/30/2024 7:51 AM EDT Plan of Treatment Upcoming Encounters Date Type Department Care Team (Late st Contact Info) Description 07/17/2024 2:30 PM EDT Appointment [facility] [address] [place] [address] screened 05/25/2025 8:00 AM EST Telemedicine [facility] [address] [phone] Clarissa Leggett MD [address] [address] Return in about 1 year (around 05/19/2025). Health Maintenance Due Date Last Done Comments Diabetic foot exam 1976 Lipids 1976 HIV screen 1981 Diabetic Alb to Cr ratio (uACR) test 1984 GFR test (Diabetes, CKD 3-4, OR last GFR 15-59) 1984 Hepatitis C screen 1984 DTaP/Tdap/Td vaccine (1 - Tdap) 1985 Hepatitis B vaccine (1 of 3 - 19+ 3-dose series) 1985 Pneumococcal 50+ years Vacci ne (1 of 2 - PCV) 1985 FIT/FOBT: Average risk 11/04/2011 Fecal-DNA (Cologuard): [place] ge risk 11/04/2011 Sigmoidoscopy/CT colonography 11/04/2011 Shingles vaccine (1 of 2) 2016 Flu vaccine (#1) 11/07/2023 COVID-19 Vaccine (1 - 2023-2 5 season) 2023 A1C test (Diabetic or Prediabetic) 01/20/2025 01/21/2024 Depression Screen 05/18/2025 05/18/2024, 05/18/2024 Diabetic retinal exam 06/25/2026 06/25/2024 Colonoscopy 06/26/2029 06/26/2024 Colorectal Cancer Screen 06/26/2029 Hepatitis A vaccine Aged Out No longe r eligible based on patient's age to complete this topic Hib vaccine Aged Out No longer eligi ble based on patient's age to complete this topic Meningococcal (ACWY) vaccine Aged Out No longer eligible based on patient's age to complete this topic Meningococcal B vaccine Aged Out No l onger eligible based on patient's age to complete this topic Polio vaccine Aged Out No longer elig ible based on patient's age to complete this topic Procedures Procedure Name Priority Date/Time Associated Diagnosis Comments COLONOSCOPY POLYPECTOMY SNARE/BIOPSY 06/26/2024 7:59 AM EDT Screen for colon cancer Special Needs [place] 6:45Mychart only ###Mounjaro Tuesdays SURGICAL PATHOLOGY Routine 06/26/2024 Screen for colon cancer DIABETES EYE EXAM Routine 06/25/2024 AMB EXT HGBA1C Routine 01/21/2024 from Last 3 Months or Most Recently Relevant to Health Maintenance Results * Surgical Pathology (06/26/2024) Polyp (Hepatic Flexure) 06/26/2024 8:36 AM EDT Comment:Pre-op diagnosis: Screen for colon cancer [Z12.11] Polyp (Colon-Transverse ) 06/26/2024 8:37 AM EDT Comment:Pre-op diagnosis: Screen for colon cancer [Z12.11] Polyp SPECIMEN FROM RECTUM / Unknown 06/26/2024 8:41 AM EDT Comment:Pre-op diagnosis: Screen for colon cancer [Z12.11] Jeremi Hernandez MD PATHOLOGY/CYTOLOGY ORDER AZUCENA Final Result [facility] [address] [place] [phone] * HM DIABETES EYE EXAM (06/25/2024) Diabetic Retinopathy Negative Historical Provider HEALTH MAINTENANCE Final Result * AMB EXT HGBA1C (01/21/2024) Hemoglobin A1C, External 5.0 % us Historical Provider POINT OF CARE TEST ORDERA BLES Final Result from Last 3 Months or Most Recently Relevant to Health Maintenance Insurance [employer] Advance Directives * Full Code (Latest Code Status on File) Date Activated Date Inactivated Comments 06/26/2024 7:00 AM 06/26/2024 11:27 AM Care Teams Raise Driller Relationship Specialty Start Date End Date Clarissa Leggett MD 2 [place] [address] PCP - General Family Medicine 05/19/24
--- OUTSIDE RECORDS SUMMARY | 2024-07-08 13:30 | XMS_ITS | Continuity of Care Document ---
Author Organization [facility] Address [address] [place] [address] Phone Care Team Providers Care Operations Research Group Manager Name Role Phone Severino Arrieta MD Unavailable Unavailable Advance Directives Directive Yes / No Effective Date File Name No Information Encounters Encounter Description Practice Location Reason(s) For Visit Diagnoses Date Provider Providers Copied on Encounter [facility], [address], [place], [place], [id number], [place] tel:[phone] [facility] Adolfo No Information Meenakshi Haq. [address] [address], [place], [address], [place]. tel:[phone] Family History Family Member Type Diagnosis Age At Onset No Information Payers Payer name Insurance type Covered republican ID Authoriza tion(s) No Information Social History [...]
--- OUTSIDE RECORDS SUMMARY | 2024-07-08 13:30 | XMS_ITS | Encounter Summary ---
Author Organization [facility] Address [address] [place] [address] Care Team Providers Care Hog Feeder Name Role Phone Clarissa Leggett MD Primary Care Provider + Reason for Visit * Reason Onset Date Comments New Patient 05/20/2024 Encounter Details Date Type Department Care Team (Late st Contact Info) Description 05/20/2024 Telephone [facility] [address] [place] [address] Chang Beltrán DPM [address] [place] [address] New Patient Social History Tobacco Use Types Packs/Day Years Used Date Smoking Tobacco: Some Days Cigarettes 0.3 42.2 Started: 04/08/1982 Smokeless Tobacco: Never Comments:1 pack per week Alcohol Use Standard Drinks/Week Comments Yes 0 (1 standard drink = 0.6 oz pur e alcohol) Minimal drinking [facility] Utilities Answer Date Recorded In the past 12 months has e [employer], gas, oil, or water [employer] threatened to shut off services in your [...] were you homeless or living in a half-way (including now)? No 05/18/2024 Food Insecurity Answer [...] EST Travel History Travel Start Travel End [place] 06/22/2024 06/24/2024 documented as of this encounter Plan of Treatment Upcoming Encounters Date Type Department Care Team (Late st Contact Info) Description 07/17/2024 2:30 PM EDT Appointment [facility] [address] [place] [address] screened 06/30/ 05/25/2025 8:00 AM EST Telemedicine [facility] 2 [facility] [address] [place] [phone] Clarissa Leggett MD 2 [facility] [address] [place] [address] Return in about 1 year (around 05/19/2025). documented as of this encounter Visit Diagnoses Not on filedocumented in this encounter Care Teams Hog Feeder Relationship Specialty Start Date End Date Clarissa Leggett MD 2 [facility] [address] [place] [address] PCP - General Family Medicine 05/19/24 documented as of this encounter
== END 2024-07-08 11:07 | disposition home or self-care (01) ==
LOC: HO.LAB 11:06
PROVIDERS: Visit Provider Optometrist
DX: M31.6 Other giant cell arteritis (principal)
CPT/HCPCS: 36415; 85049; 85652; 86140